=== PATIENT | female | born 1990 | race Caucasian/White ===

== ENCOUNTER 2017-08-23 10:31 | Emergency (ER) | payer OTHER ==
[~2017-08-23] VITALS: Ht 157.5 cm; Wt 81.7 kg
[~2017-08-23 10:31] MED LIST: AMOXICILLIN 50500 MG PO; BACTRIM DS TAB1 EACH PO; CEPHALEXIN 500500 M3 PO; DIFLUCAN150 MG PO; LOESTRIN 24 FE1 EACH PO; MACROBID 100 M100 M1 PO; MEDROLDOSEPACK PO; PRENATAL; PYRIDIUM200 MG PO; YASMIN 28 TABL1 EACH PO; ZOFRAN ODT4 MG PO; ZOFRAN4 MG PO; ZOVIRAX 5% CR2 G1 TP
[2017-08-23 11:06] LABS: URINE BILIRUBIN NEGATIVE (Negative); URINE BLOOD NEGATIVE (Negative); URINE CLARITY CLEAR; URINE COLOR YELLOW; URINE GLUCOSE-RANDOM NEGATIVE (Negative); URINE KETONES NEGATIVE (Negative); URINE LEUKOCYTES-REFLEX NEGATIVE (Negative); URINE NITRITE-REFLEX NEGATIVE (Negative); URINE PROTEIN NEGATIVE (Negative); URINE SPECIFIC GRAVITY 1.025 (1.005-1.030); URINE UROBILINOGEN 0.2 E.U./dl (0.2-1.0)
[2017-08-23] MEDS ORDERED: PREDNISONE 10 M10 MG PO (12:09)
[2017-08-23] MEDS ORDERED: TESSALON PERLE100 MG PO (12:09)
[2017-08-23 12:19] VITALS: BP 122/71
== END 2017-08-23 12:19 | disposition home or self-care (01) ==
LOC: M.ERS 10:31
PROVIDERS: Physician Assistant
DX: R09.1 Pleurisy (principal)

== ENCOUNTER 2020-11-17 10:28 | Emergency (ER) | payer MEDICAID ==
[~2020-11-17] VITALS: Ht 157.5 cm; Wt 98.0 kg
[~2020-11-17 10:28] MED LIST changes: +PREDNISONE 10 M10 MG PO; +TESSALON PERLE100 MG PO
[2020-11-17] MEDS ORDERED: METFORMIN HCL500 M3 PO (10:54)
[2020-11-17] MEDS ORDERED: CEPHALEXIN500 MG PO (11:44)
[2020-11-17 12:05] VITALS: BP 153/91
== END 2020-11-17 12:09 | disposition home or self-care (01) ==
LOC: M.ERS 10:28
DX: J01.90 Acute sinusitis, unspecified (principal); Z98.51 Tubal ligation status